=== PATIENT | female | born 1965 | race Caucasian/White ===

== ENCOUNTER 2020-01-07 10:13 | Outpatient (CLI) | payer BC ==
[~2020-01-07 10:13] MED LIST: KETO10TA PO; MULT-658 PO; ONDA4TAB7 PO; OXYC-306 PO
== END 2020-01-07 23:59 | disposition home or self-care (01) ==
LOC: CFH 10:13
PROVIDERS: ATTEND Specialist
DX: Z12.31 Encounter for screening mammogram for malignant neoplasm of breast (principal); E34.9 Endocrine disorder, unspecified; E55.9 Vitamin D deficiency, unspecified; R53.83 Other fatigue; E78.5 Hyperlipidemia, unspecified
CPT/HCPCS: 77063; 77067